=== PATIENT | male | born 1995 | race Caucasian/White ===

== ENCOUNTER 2024-07-24 20:44 | Emergency (ER) | payer BC, SELFPAY ==
[2024-07-24 20:52] VITALS: BP 116/73; PULSE 115; RESP 24; TEMP 38.9; O2SAT 87; BMI 32.1
--- NOTE | 2024-07-24 20:59 | CRLHL7_ITS ---
For Patients: As a result of the Cures Act, medical imaging exams and procedure reports are released immediately into your electronic medical record. You may view this report before your referring provider. If you have questions, please contact your health care provider. INDICATION: Cough, fever. TECHNIQUE: Chest 2 views. COMPARISON: None. FINDINGS: Cardiovascular and mediastinum: Heart size is normal. Unremarkable mediastinum. Lungs and pleural spaces: Patchy opacities seen predominantly on the left. No sign of pleural effusion. No pneumothorax. Bones and soft tissues: No significant findings. IMPRESSION: Patchy pulmonary opacities seen predominantly on the left could represent pneumonia. Dictated by Galo Escobedo MD @ 07/24/2024 9:18:38 PM (Electronically Signed)
[2024-07-24] MEDS: KETOROLAC 30 MG/ML inj IVP (21:10)
[2024-07-24 21:11] LABS: Basophils Absolute Auto 0.04 K/uL (0.00-0.30); Basophils Percent Auto 0.6 % (0.0-3.0); Eosinophils Absolute Auto 0.05 K/uL (0.00-0.50); Eosinophils Percent Auto 0.8 % (0.0-7.0); Hematocrit 40.9 % (37.0-53.0); Hemoglobin* 14.3 gm/dL (13.5-17.5); Immature Granulocytes Abs Auto 0.06 K/uL (0.00-0.30); Immature Granulocytes Pct Auto 0.9 %; Lymphocytes Percent Auto 12.9 % (20-44); Mean Corpuscular HGB Conc 35 gm/dL (32-36); Mean Corpuscular Hemoglobin 31 pg (26-34); Mean Corpuscular Volume 88 fL (80-100); Monocytes Percent Auto 7.4 % (0.0-11.0); Neutrophils Percent Auto 77.4 % (42.0-72.0); Platelet Count* 201 K/uL (140-440); RDW Coefficient of Variation % 11.7 % (11.5-15.5); Red Blood Count 4.66 m/uL (4.30-5.90); Slide Review Reflex No; White Blood Count* 6.58 K/uL (4.50-11.00)
[2024-07-24] MEDS: DEXAMETHASONE 10 MG/ML PF IVP (21:15)
--- NOTE | 2024-07-24 21:17 | ED_ITS ---
HPI - General Adult General Chief complaint: Fever Stated complaint: Pneumonia/ 104.1?F fever Time Seen by Provider: 07/24/24 20:48 History of Present Illness HPI narrative: This 28-year-old male comes in because of persistent fevers and cough. He was seen 4 days ago in an urgent care elsewhere and chest x-ray had suspicion of a left perihilar patchy infiltrate. Nasal swab was negative then for viruses tested. The patient has been taking Augmentin since then but comes in here tripp use of persistent fevers, tachycardia, and shortness of breath. He arrives here with a pulse at 115 and temperature to 102.1? F. His O2 sats went as low as 87% but at rest he is hanging around 90-92% on room air. Related Data Previous Rx's ?Medication ?Instructions ?Recorded methylprednisolone 4 mg tablets in See Rx Instructions PO .COMPLEX 07/24/24 a dose pack (Medrol ([employer]ner)) #21 ea Allergies Allergy/AdvReac Type Severity Reaction Status Date / Time Tetanus Vaccines and Toxoid AdvReac Chills Verified 07/24/24 20:53 Review of Systems Status of ROS: Reports: 10 or more systems reviewed and unremarkable except as noted in History and below Narrative: Constitutional: No weight gain or loss. Fevers. Eyes: No discharge. No vision changes. HENT: No congestion, no sore throat, no ear pain. Cardiovascular: No chest pain, no palpitations. Respiratory: Cough with shortness of breath. Gastrointestinal: No abdominal pain, no vomiting, no diarrhea. Genitourinary: No dysuria, no hematuria. Musculoskeletal: Normal range of motion. Skin: No rashes, no pruritis. Neurological: No dizziness, weakness, sensory change, speech change. Endo/Heme/Allergies: No bruising or bleeding. No polydipsia. Pysch: no suicidality, no anxiety, no insomnia. All other systems reviewed and are negative. Exam Narrative: Exam Narrative: Constitutional: Well-developed, well-nourished. HEENT: Normocephalic, atraumatic. Neck: Normal range of motion. Nontender. Supple. Heart: Regular. No murmurs. Normal rate. Intact distal pulses. Lungs: Clear to auscultation. No chest discomfort. No wheezes, rhonchi, or rales. Abdomen: Normal bowel sounds. Nontender. No rebound tenderness. Genitalia: Deferred. Back: No midline tenderness. Normal range of motion. Extremities: Normal range of motion. No injury. Skin: Intact. No rash. Warm. No erythema or pallor. Neurologic: No altered sensation. No weakness. Alert and oriented. Psychiatric: No suicidality. No anxiety or depression. No insomnia. Nursing notes and vitals signs are reviewed. Const: Vital Signs, click to edit/add: Vital Signs - 24 hr 07/24/24 20:52 Temperature 102.1 F H Pulse Rate [Right Pulse Oximeter] 115 H Respiratory Rate 24 Blood Pressure [Ri ght Upper Arm] 116/73 Pulse Oximetry 87 L Oxygen Delivery Me thod Room Air Course Vital Signs Vital signs: Initial Vital Signs Temperature 102.1 F H 07/24/24 20:52 Temperature Source Temporal Artery Scan 07/24/24 20:52 Pulse Rate 115 H 07/24/24 20:52 Respiratory Rate 24 07/24/24 20:52 Blood Pressure 116/73 07/24/24 20:52 Blood Pressure Mean 87 07/24/24 20:52 Blood Pressure Position Sitting 07/24/24 20:52 Pulse Oximetry 87 L 07/24/24 20:52 Oxygen Delivery Method Room Air 07/24/24 20:52 Vital Signs Temperature 102.1 F H 07/24/24 20:52 Pulse Rate 115 H 07/24/24 20:52 Respiratory Rate 24 07/24/24 20:52 Blood Pressure 116/73 07/24/24 20:52 Pulse Oximetry 87 L 07/24/24 20:52 Oxygen Delivery Method Room Air 07/24/24 20:52 Temperature 102.1 F H 07/24/24 20:52 Pulse Rate 115 H 07/24/24 20:52 Respiratory Rate 24 07/24/24 20:52 Blood Pressure 116/73 07/24/24 20:52 Pulse Oximetry 87 L 07/24/24 20:52 Oxygen Delivery Method Room Air 07/24/24 20:52 Medications Administered Medications: Generic Name Dose Route Start Last Admin Trade Name Freq PRN Reason Stop Dose Admin Dexamethasone 10 mg 07/24/24 21:12 07/24/24 21:15 Dexamethasone 10 Mg/Ml Pf IVP 07/24/24 21:13 10 mg ONCE ONE Administration Ketorolac Tromethamine 30 mg 07/24/24 20:58 07/24/24 21:10 Ketorolac 30 Mg/Ml Inj IVP 07/24/24 20:59 30 mg ONCE ONE Administration Discontinued Medications Generic Name Dose Route Start Last Admin Trade Name Ayo PRN Reason Stop Dose Admin Dexamethasone 10 mg 07/24/24 20:58 07/24/24 21:32 Dexamethasone 4 Mg/Ml Vial IV 07/24/24 20:59 Not Given ONCE ONE Medical Decision Making MDM Narrative Medical decision making narrative: This 28-year-old male comes in with persistent productive cough and fevers despite taking Augmentin for the past 4 days. An IV was established and labs are acquired. A repeat chest x-ray shows similar finding of left patchy infiltrate in the hilar region. Lab results show a normal white count. The patient did receive IV doses of dexamethasone and Toradol. He states that he is feeling better. He is continuing to show oximetry at 92-93% on room air. This patient feels okay to return home. I did give a dose of Rocephin intravenously as it seems that he is truly fighting a bacterial infection but perhaps it is resistant to Augmentin. A prescription also as provided for doxycycline and Medrol Dosepak. Lab Data Labs: Lab Results 07/24/24 Range/Units 21:07 WBC 6.58 (4.50-11.00) K/uL RBC 4.66 (4.30-5.90) m/uL Hgb 14.3 (13.5-17.5) gm/dL Hct 40.9 (37.0-53.0) % MCV 88 (80-100) fL MCH 31 (26-34) pg MCHC 35 (32-36) gm/dL RDW Coeff of Luis Armando 11.7 (11.5-15.5) % Plt Count 201 (140-440) K/uL Neut % (Auto) 77.4 H (42.0-72.0) % Lymph % (Auto) 12.9 L (20-44) % [place] % (Auto) 7.4 (0.0-11.0) % Eos % (Auto) 0.8 (0.0-7.0) % Baso % (Auto) 0.6 (0.0-3.0) % Neut # (Auto) 5.10 (1.7-7.0) K/uL Lymph # (Auto) 0.80 L (0.90-2.90) K/uL [place] # (Auto) 0.50 (0.00-0.90) K/UL Eos # (Auto) 0.05 (0.00-0.50) K/uL Baso # (Auto) 0.04 (0.00-0.30) K/uL Abs Immat Gran (auto) 0.06 (0.00-0.30) K/uL Imm/Tot Granulo (auto) 0.9 % Lactate 1.0 (0.5-1.9) mmol/L Imaging Data Chest x-ray: Radiologist's impression: Patchy pulmonary opacities seen predominantly on the left could represent pneumonia. Discharge Plan Discharge Clinical Impression: Pneumonia Patient Disposition: Home, Self-Care Condition: Stable Additional Instructions: Take medication as prescribed. Follow up with MD or return if symptoms are persistent or worsening. Prescriptions: New methylprednisolone [Medrol ([employer])] 4 mg tablets,dose pack See Rx Instructions .ROUTE .COMPLEX Qty: 21 0RF Rx Instructions: orally per package directions Follow Up/Referrals: Ra Bradley MD [Primary Care Provider] - Stand Alone Forms: [facility] Info Instructions
--- OUTSIDE RECORDS SUMMARY | 2024-07-24 21:21 | XMS_ITS | Clinical Summary ---
Author Organization [facility] Address [address] [place] [address] Care Team Providers Care Tile Installer Name Role Phone Needs Pcp, Assignment Primary Care Provider [phone] Source Comments You are receiving this document as you are listed as the primary care provider,follow-up provider, or the patient has been referred to you for consultation.This is in compliance with the Medicare andMedicaid EHR Incentive Program,which states Providers who transition their patient to another setting of careor provider of care or refers their patient to another provider of care shouldprovide summary care record for each transition of care or referral. [employer] Allergies No known active allergies Immunizations Immunization Administration Dates Next Due DTaP/Hib 03/24/1995, 5,04/08/1994,1993 HepB Adult (Engerix-B, 20+ y rs, 3 dose series) 10/15/1994,04/08/1994,01/31/1994 MMR 03/24/1995 OPV, Trivalent (Orimune or tOPV) 06/05/1994,03/18,01/31/1994 Social History Tobacco Use Types Packs/Day Years Used Date Smoking Tobacco: Never Assessed Sex and Gender Information Value Date Recorded Sex Assigned at Not on file Legal Sex Male 4:51 AM CDT Gender Identity Not on file Sexual Orientation Not on file Last Filed Vital Signs Vital Sign Reading Time Taken Comments Blood Pressure 150/79 03/19/2015 12:36 PM LPN RN Pulse 77 03/19/2015 12:36 PM LPN RN Temperature 37.1 C (98.8 F) 03/19/2015 12:36 PM LPN RN Respiratory Rate 18 03/19/2015 12:36 PM LPN RN Oxygen Saturation - - Inhaled Oxygen Concentration - - Weight - - Height - - Body Mass Index - - Plan of Treatment Health Maintenance Due Date Last Done Comments Hep C Screening (Preventive Services) 1993 IPV (Polio) Vaccine (4 of 4 - 4-dose series) 1997 06/05/1994, 04/08/1994, 01/31/1994 HIV Screening (Preventive Services) 2009 Adult Preventive Visit 12/07/2011 DTaP/Tdap/Td Vaccine (7 - Tdap) 07/15/2016 07/15/2006, 12/04/1998, 03/24/1995, Additional history exists COVID-19 Vaccine (2023- season) 2023 Influenza Vaccine (Season Ended) 2024 Zoster/Shingles Vaccine (1 of 2) 12/07/2043 HepB Vaccine Completed 10/15/1994, 03/18, 01/31/1994 Hib Vaccine Completed 03/24/1995, 10/1995, 06/05/1994, Additional history exists HPV Vaccine Aged Out No longer eligi ble based on patient's age to complete this topic HepA Vaccine Aged Out No longer eligi ble based on patient's age to complete this topic MCV4 Vaccine Aged Out No longer eligi ble based on patient's age to complete this topic Meningococcal B Vaccine Aged Out No l onger eligible based on patient's age to complete this topic Pneumococcal Vaccine Aged Out No long er eligible based on patient's age to complete this topic Care Teams Tile Installer Relationship Specialty Start Date End Date Needs Pcp, [place] [address] PCP - General 03/12/23
--- OUTSIDE RECORDS SUMMARY | 2024-07-24 21:21 | XMS_ITS ---
Author Organization [facility] Address [address] [place] [address] [address] [place] [address] Care Team Providers Care Press Tender Short Goods Name Role Phone Kirk JAQUEZ, Ra Primary Care Provider Shakir Byrne Unavailable [phone] Vipin Hoffman PA-C Unavailable Unavailab le REASON FOR VISIT RFA Results Encounters Encounter Location Date Provider Diagnosis [facility] [address] [place] [address] [address] [place] [address] 05/07/2024 Shakir Best Plan Of Treatment No Information Progress Notes * Klever BAEZDOB:[birth year] (28 yo M)Acc No.[id number]:05/07/2024 Patient: Wendy PARAGPAULAKlever :1995 A ge:28 Y S ex:Male Phone: Address:[address] [place] [address] * true * Date: Generated for Printi ng/Farikyg/eTransmitting on: 0 07/24/2024 09:21 PM CDT
--- OUTSIDE RECORDS SUMMARY | 2024-07-24 21:22 | XMS_ITS | Encounter Summary ---
Author Organization [facility] Address [address] [facility] 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
--- OUTSIDE RECORDS SUMMARY | 2024-07-24 21:22 | XMS_ITS ---
Author Organization [facility] Address [address] [place] [address] [address] [place] [address] Care Team Providers Care Coldfusion Name Role Phone Kirk JAQUEZ, Ra Primary Care Provider Shakir Byrne Unavailable [phone] Vipin Hoffman PA-C Unavailable Unavailab le REASON FOR VISIT *Sedation* repeat Right L3-S1 RFAs Encounters Encounter Location Date Provider Diagnosis [address] [facility] [address] [facility] [address] [place] [address] 05/20/2024 Shakir Best Spondylosis without myelopathy or radiculopathy, lumbosacral region M47.817 Assessments Encounter Date Diagnosis (ICD Code) Assessment Notes Treatment Notes Treatment Clinical Notes Section Notes 05/20/2024 Spondylosis without myelopathy or radiculopathy, lumbosacral region (ICD-10 - M47.817) Plan Of Treatment No Information Progress Notes * Klever BAEZDOB:[birth year] (28 yo M)Acc No.[id number]:05/20/2024 Patient: Wendy APPIAH Klever Marquez Provider: Alma Best M.D. :1995 A ge:28 Y S ex:Male Date:05/20/2024 Phone: Address:[address] [phone] Pcp:Ra Bradley MD * Billing Information: * Visit Code: * Procedure Codes: 69649 Radiofrequency L or S single level. Modifiers: RT J2704 Propofol 10 mg/ml. Units: 35.00. A4616 IV Tubing. 69249 Radiofrequency L or S addl levels. Units: 2.00. Modifiers: RT A4930 Gloves Sterile Per Pair. A4556 EKG Pads-Electrodes. A4649 IV Starter Kit. A4209 5 cc - 19 cc gauge syringe. Units: 2.00. A4215 [place] only Sterile any size each. Units: 6.00. A4615 O2 Mask. S1015 IV Extension Set. A4550 Radiofrequency Kit. J0665 Inj, bupivacaine, nos, 0.5mg. J1100 Dexamethasone/Decadron 1ml. Modifiers: JZ * INE HOOP MAKER HELPER Sign off status: Completed true * Provider: Alma Best M.D. Date: 0 05/20/2024 Generated for Renetta schafer/Artur/Kaliitting on: 0 07/24/2024 09:22 PM CDT
--- OUTSIDE RECORDS SUMMARY | 2024-07-24 21:22 | XMS_ITS ---
Author Organization [facility] Address [address] [place] [address] Care Team Providers Care Systematic Theology Professor Name Role Phone aR Bradley MD Primary Care Provider Shakir Byrne Unavailable [phone] Vipin Hoffman PA-C Unavailable Unavailab le REASON FOR VISIT pre/post Encounters Encounter Location Date Provider Diagnosis [facility] [address] [place] [address] 05/19/2024 Shakir Best Plan Of Treatment No Information Progress Notes * Klever BAEZDOB:[birth year] (28 yo M)Acc No.[id number]:05/19/2024 Patient: Wendy APPIAHKlever :1995 A ge:28 Y S ex:Male Phone: Address:[address] [place] [address] * true * Date: Generated for Printi ng/Faxing/eTransmitting on: 0 07/24/2024 09:22 PM CDT
--- OUTSIDE RECORDS SUMMARY | 2024-07-24 21:22 | XMS_ITS | Patient Health Record ---
Author Organization [facility] Address [address] [place] [address] [address] [place] [address] Care Team Providers Care Certified Travel Counselor Name Role Phone Kirk JAQUEZ, Ra Primary Care Provider Unav ailable Shakir Best Unavailable [phone] Vipin Hoffman PA-C Unavailable Unavailab Carrington Crouch Unavailable [phone] Allergies Allergen (clinical drug ingredient) Drug/Non Drug Allergy documented on EMR Reaction Allergy Type Onset Date Status tetnus (uncoded) fever, rash Allergy A ctive Results Component Value Reference Range Notes MRI : Lumbar Reviewed date:08/25/2023 04:33:18 PM Interpretation: Performing Lab: Notes/Report: Original Report EXAM: MR LUMBAR SPINE WITHOUT CONTRAST 1.5T CLINICAL INFORMATION: Bilateral low back and leg pain with tingling. No injury. TECHNICAL INFORMATION: T1, T2 and STIR sagittal sections through the lumbar spine with T1 coronal sections, T1 and T2 FSE stacked axial sections and T2 FSE angled axial sections through L5-S1. COMPARISON IMAGES: No comparisons. INTERPRETATION: Segmentation and Alignment: Lordotic alignment of five lumbar vertebrae with a mild lumbar curve to the right. Sacrum and Sacroiliac joints: Normal sacrum and sacroiliac joints. L5-S1: Moderate disc degeneration with mild narrowing of the neural foramina. Facet joints normal. L4-5: Mild disc degeneration with mild bilateral facet arthropathy and no stenosis or impingement. L3-4 through T11-12: Intervertebral discs unremarkable with mild endplate irregularities at multiple levels, normal dorsal disc margins, normal facet joints and no stenosis or impingement. Conus: Normal signal intensity within the conus medullaris. No intradural mass or arachnoidal adhesions. Osseous structures: Normal signal intensity within the vertebral marrow spaces. No fracture or avulsion. No osteolytic or destructive bone lesion. Paraspinous soft tissues: No paraspinous soft tissue mass or fluid collection. CONCLUSION: 1. Mild disc and bilateral facet degeneration at L4-5. 2. No disc herniation, no significant stenosis and no neural impingement. 3. No neoplasm, fracture or infection. Read by: Guanaco Perez M.D. Reviewed and Electronically Signed by: Guanaco Perez M.D. - Original Report EXAM: MR LUMBAR SPIN E WITHOUT CONTRAST 1.5T CLINICAL INFORMATION : Bilateral low back and leg pain with tingling. No injury. TECHNICAL INFORMATIO N: T1, T2 and STIR sagittal sections through the lumbar spine with T1 underwood l sections, T1 and T2 FSE stacked axial sections and T2 FSE angled axial section s through L5-S1. COMPARISON IMAGES: N o comparisons. INTERPRETATION: Segm entation and Alignment: Lordotic alignment of five lumbar vertebrae with a mil d lumbar curve to the right. Sacrum and Sacroilia c joints: Normal sacrum and sacroiliac joints. L5-S1: Moderate disc degeneration with mild narrowing of the neural foramina. Facet joints normal. L4-5: Mild disc dege neration with mild bilateral facet arthropathy and no stenosis or impingement. L3-4 through T11-12: Intervertebral discs unremarkable with mild endplate irregularities at mu ltiple levels, normal dorsal disc margins, normal facet joints and no stenos is or impingement. Conus: Normal signal intensity within the conus medullaris. No intradural mass or arachnoidal adhesions. Osseous structures: Normal signal intensity within the vertebral marrow spaces. No fracture or avuls ion. No osteolytic or destructive bone lesion. Paraspinous soft tis sues: No paraspinous soft tissue mass or fluid collection. CONCLUSION: 1. Mild disc and dora ateral facet degeneration at L4-5. 2. No disc herniatio n, no significant stenosis and no neural impingement. 3. No neoplasm, frac ture or infection. Read by: Guanaco Perez M.D. Reviewed and Electro nically Signed by: Guanaco Perez M.D. X ray : Lumbar Reviewed date:08/25/2023 04:33:29 PM Interpretation: Performing Lab: Notes/Report: Original Report EXAM: LUMBAR SPINE X-RAYS, 2 VIEWS CLINICAL: Bilateral low back pain with tingling. No injury. TECHNICAL: Lateral recumbent views with flexion-extension. COMPARISONS: MRI dated 08/12/2023. INTERPRETATION: Lordotic alignment of 5 lumbar type vertebrae with a mild lumbar curve to the right. Moderate L5-S1 and mild L4-5 disc space narrowing. No facet arthropathy and no spondylolisthesis. No abnormal intersegmental motion on flexion-extension. No fracture or avulsion. No osteolytic or destructive bone lesions. CONCLUSION: 1. L5-S1 and L4-5 disc degeneration. 2. No segmental hypermobility on flexion-extension. Read by: Guanaco Perez M.D. Reviewed and Electronically Signed by: Guanaco Perez M.D. - Original Report EXAM: LUMBAR SPINE X -RAYS, 2 VIEWS CLINICAL: Bilateral low back pain with tingling. No injury. TECHNICAL: Lateral r ecumbent views with flexion-extension. COMPARISONS: MRI kamron ed 08/12/2023. INTERPRETATION: Lord otic alignment of 5 lumbar type vertebrae with a mild lumbar curve to the right. Moderate L5-S1 and mild L4-5 disc space narrowing. No facet arthropathy an d no spondylolisthesis. No abnormal intersegmental motion on flexion-extension. No fracture or avuls ion. No osteolytic or destructive bone lesions. CONCLUSION: 1. L5-S1 and L4-5 di sc degeneration. 2. No segmental hype rmobility on flexion-extension. Read by: Guanaco Perez M.D. Reviewed and Electro nically Signed by: Guanaco Perez M.D. Reason For Referral Reason Please evaluate and treat low back and leg pain. Patient needs a short course for injection therapies. Please call patient to schedule at [phone] Diagnosis 1 Low back pain, unspe cified (M54.50) Referral Organization [facility] Referring Provider First Name Carrington Referring Provider Last Name Michael Referring Provider Speciality Physician Aircraft Refueler Referred Provider [facility] Referred Provider Specialty Physical The rapist General Notes Kristine Kraus 024 09:25:50 AM >Please call the patient to schedule and fax back all notes to [phone]. If you need additional records for this referral, please call [phone]. Thanks! 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) Referral Organization [facility] Referring Provider First Name Shakir Referring Provider Last Name Nasir Referring Provider Speciality Pain Medic ine Referred Organization [facility] Referred Provider Shakir Best Referred Address [address] [place] [address] [address] [place], [place],[address], Referred Provider Specialty Pain Medicin e Referral Priority Routine Reason Repeat Left L3-S1 RF A Diagnosis 1 Spondylosis without myelopathy or radiculopathy, lumbosacral 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) Referral Organization [facility] Referring Provider First Name Shakir Referring Provider Last Name Nasir Referring Provider Speciality Pain Medic ine Referred Organization [facility] Referred Provider Shakir Best Referred Address [address] [place] [address] [address],[place], [place],[address], Referred Provider Specialty Pain Medicin e Referral Priority Routine Medications Medication SIG (Take, Route, Frequency, Duration) Notes Start Date End Date Status predniSONE 10 MG 1 to 3 tablet Orally 3 tabs daily x 5 days, then 2 tabs daily x5days then 1 tab daily x 5 days for 15 days 07/30/2023 Active Meloxicam 15 MG 1 tablet Orally Once a day for 30 days Take once daily with food. Do not take OTC NSAIDS when taking Active oxyCODONE-Acetaminophe n 5-325 MG 1 tablet as needed Orally every 6 hrs for 3 days For post procedural pain 05/26/2023 Active Methocarbamol 500 MG 1 tablet as needed Orally three times a day for 30 days Active Medrol 4 MG as directed on Medrol package Orally 1 pack for 6 days 03/24/2023 Active Methocarbamol 500 MG 1 tablet Orally three times a day as needed for 30 day(s) 10/11/2021 Active Social History Tobacco Use: Social History Observation Description Date Details (start date - stop date) Never Smoker NA - NA Alcohol Screen Question Answer Notes Did you have a drink contain ing alcohol in the past year? Yes How often did you have a dri nk containing alcohol in the past year? 2 to 4 times a month (2 points) Points 2 Interpretation Negative Tobacco Control (Standard) Question Answer Notes Tobacco use: Nonsmoker AUDIT-C (Standard) Question Answer Notes Did you have a drink contain ing alcohol in the past year? Yes How often did you have six o r more drinks on one occasion in the past year? Never (0 point) How many drinks did you have on a typical day when you were drinking in the past year? 1 or 2 drinks (0 point) How often did you have a dri nk containing alcohol in the past year? 2 to 4 times a month (2 points) Points 2 Interpretation Negative Problems Problem Type SNOMED Code ICD Code Onset Dates Problem Status W/U Status Risk Notes Problem Fear of medical treatment (601025358) Fear of injections and transfusions (F40.231) Active confirmed Problem Chronic pain (40517439) Other chronic pain (G89.29) Active confirmed Problem Lumbosacral spondylosis without myelopathy (07547902) Spondylosis without myelopathy or radiculopathy, lumbar region (M47.816) Active confirmed Problem Lumbosacral spondylosis without myelopathy (disorder) (68363829) Spondylosis without myelopathy or radiculopathy, lumbosacral 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) Active confirmed Problem Low back pain (780531083) Low back pain, unspecified (M54.50) Active confirmed Vital Signs Blood pressure diastolic 86 mm Hg 03/25/2024 Height 74 in 03/25/2024 Blood pressure systolic 132 mm Hg 03/25/2024 Weight 263.6 lbs 03/25/2024 BMI 33.84 kg/m2 03/25/2024 Encounters Encounter Location Date Provider Diagnosis [facility] [address] [place] [address] [address] [place] [id number] 07/31/2023 Shakir Best [facility] [address] [place] [address] [address] [place] [phone] 08/06/2023 Shakir Best [facility] [address] [place] [address] [address] [place] [phone] 08/12/2023 Shakir Best [place] [address] [facility] [address] [facility] [address] [place] [address] 03/25/2024 Shakir Best [facility] [address] [place] [address] [address] [place] [phone] 05/05/2024 Shakir Best [facility] [address] [place] [address] [address] [place] [phone] 05/07/2024 Shakir Best [facility] [address] [place] [address] [address] [place] [address] 05/19/2024 Shakir Best [place] [address] [facility] [address] [address] 07/30/2023 Carrington Rodriguez Other chronic pain G89.29 and Low back pain, unspecified M54.50 [place] [address] [facility] [address] [facility] [address] [place] [address] 09/08/2023 Carrington Rodriguez Other chronic pain G89.29 and Low back pain, unspecified M54.50 [place] [address] [facility] [address] [facility] [address] [place] [address] 03/25/2024 Carrington Rodriguez Other chronic pain G89.29 and Spondylosis without myelopathy or radiculopathy, lumbosacral region M47.817 [address] [facility] [address] [place] [address] 05/06/2024 Shakir Best Spondylosis without myelopathy or radiculopathy, lumbosacral region M47.817 [address] [facility] [address] [facility] [address] [place] [address] 05/20/2024 Shakir Best Spondylosis without myelopathy or radiculopathy, lumbosacral region M47.817 Assessments Encounter Date Diagnosis (ICD Code) Assessment Notes Treatment Notes Treatment Clinical Notes Section Notes 07/30/2023 Other chronic pain (ICD-10 - G89.29) Klever returns to clinic today for a follow up evaluation regarding his chronic pain and newer right lower extremity pain. I have reviewed the [facility] database and did not find any inconsistencies. We discussed his current symptoms and medications. At this time I believe updated imaging is necessary for further evaluation and treatment. I will order a lumbar MRI and F/E XR to [facility]. I will also refer him for PT in preparation of potential injection therapy. For current pain management, I will start him on a Prednisone taper. This treatment plan was reviewed with Klever, and he was agreeable. I will continue to monitor his progress and he will follow up in one month or sooner if needed. Plan:1. Order lumbar MRI2. Order lumbar F/E XR3. Referral to [facility]. Start 15 day Prednisone taper5. Follow up in 1 month Discharge instructions reviewed verbally. Discussed the risks/benefits of prescribed medication. The patient was instructed to return to the office as scheduled and call with any questions, problems or concerns. 07/30/2023 Low back pain, unspecified (ICD-10 - M54.50) 03/25/2024 Other chronic pain (ICD-10 - G89.29) Klever returns to clinic today for a follow-up evaluation regarding his chronic low back pain. I have reviewed the [facility] database and did not find any inconsistencies. We discussed his current symptoms and medications. I will continue with a treatment plan consisting of conservative treatment at this time. I have reviewed his lumbar MRI and discussed the findings with him in clinic today. He presents after completion of repeat left and right L3-S1 RFAs on 05/08/2023 and 05/26/2023 from which he received 100% relief for 7 months for both sides of his axial low back pain. And the relief gradually retuned to baseline. He inquires in clinic for a repeat of the aforementioned injections. He notes improvement to his walking, standing, sleeping, working, and completing ADLs. I will consider ordering a bilateral L5-S1 TFE for further management of these symptoms. Pending ongoing lower extremity relief, I will consider ordering a bilateral LE EMG for further evaluation of these symptoms. I have advised him to continue his physical therapy as he notes moderate relief of his symptoms. I have refilled his Meloxicam 15 MG as he continues to note moderate relief without side effects. Klever plans to continue his current regimen of Methocarbamol 500MG as he continues to note moderate relief without side effects. Pending further relief from injections and physical therapy, I will consider a neuropathic medication, such as Pregabalin or Lyrica. This treatment plan was reviewed with Klever, and he was agreeable. I will continue to monitor his progress and he will follow up as needed. Plan:1. Reviewed lumbar MRI dated 08/12/23 2. Per patient request, order repeat left and right L3-S1 RFAs3. Consider bilateral L5-S1 TFE4. Consider bilateral LE EMG5. Continue physical therapy 6. Refill Meloxicam 15MG 7. Continue methocarbamol 500MG8. Consider Pregabalin or Lyrica9. Follow up as needed Discharge instructions reviewed verbally. Discussed the risks/benefits of prescribed medication. The patient was instructed to return to the office as scheduled and call with any questions, problems or concerns. Lumbar MRI dated 08/12/23CONCLUSI ON:1. Mild disc and bilateral facet degeneration at L4-5.2. No disc herniation, no significant stenosis and no neural impingement.3. No neoplasm, fracture or infection. 03/25/2024 Spondylosis without myelopathy or radiculopathy, lumbosacral region (ICD-10 - M47.817) 05/06/2024 Spondylosis without myelopathy or radiculopathy, lumbosacral region (ICD-10 - M47.817) 05/20/2024 Spondylosis without myelopathy or radiculopathy, lumbosacral region (ICD-10 - M47.817) 09/08/2023 Other chronic pain (ICD-10 - G89.29) Klever returns to clinic today for a follow up evaluation regarding his chronic low back pain. I have reviewed the [facility] database and did not find any inconsistencies. We discussed his current symptoms and medications. I will continue with a treatment plan consisting of conservative treatment at this time. I have reviewed his lumbar MRI and lumbar flexion/extension XR dated 08/12/23 and discussed the findings with him in clinic today. Based on his imaging findings and ongoing symptoms, I will consider ordering a bilateral L5-S1 TFE for further management of these symptoms. Pending ongoing lower extremity relief, I will consider ordering a bilateral LE EMG for further evaluation of these symptoms. I have advised him to continue his physical therapy as he notes moderate relief of his symptoms. I have refilled his Meloxicam and methocarbamol as he continues to note moderate relief without side effects. Pending further relief from injections and physical therapy, I will consider a neuropathic medication, such as Pregabalin or Lyrica. This treatment plan was reviewed with Klever, and he was agreeable. I will continue to monitor his progress and he will follow up as needed. Plan:1. Reviewed lumbar MRI and lumbar flexion/extension XR dated . Consider bilateral L5-S1 TFE3. Consider bilateral LE EMG4. Continue physical therapy 5. Refill Meloxicam 500MG and methocarbamol6. Consider Pregabalin or Lyrica7. Follow up as needed Discharge instructions reviewed verbally. Discussed the risks/benefits of prescribed medication. The patient was instructed to return to the office as scheduled and call with any questions, problems or concerns. Lumbar MRI dated 08/12/23CONCLUSI ON:1. Mild disc and bilateral facet degeneration at L4-5.2. No disc herniation, no significant stenosis and no neural impingement.3. No neoplasm, fracture or infection. Lumbar flexion/extensio n XR dated 08/12/23CONCLUSI ON:1. L5-S1 and L4-5 disc degeneration.2. No segmental hypermobility on flexion-extensio n. 09/08/2023 Low back pain, unspecified (ICD-10 - M54.50) 07/30/2023 Other I, Willie Ashby , am serving as a scribe to document services personally performed by Carrington Rodriguez PA-C, based upon my observations and the provider's statements to me. All documentation has been reviewed by the aforementioned PATom. Carrington Flores PA-C, attest that the above named individual is acting in scribe capacity, has observed my performance of the services and has documented them in accordance with my direction. The documentation recorded by the scribe accurately reflects the service I personally performed and the decisions made during the clinic visit. 09/08/2023 Other Mark Maryector kinney, am serving as a scribe to document services personally performed by Carrington Rodriguez PA-C, based upon my observations and the provider's statements to me. All documentation has been reviewed by the aforementioned PATom. Carrington Flores PA-C, attest that the above named individual is acting in scribe capacity, has observed my performance of the services and has documented them in accordance with my direction. The documentation recorded by the scribe accurately reflects the service I personally performed and the decisions made during the clinic visit. 03/25/2024 Other Javi Flores i, am serving as a scribe to document services personally performed by Carrington Rodriguez PA-C, based upon my observations and the provider's statements to me. All documentation has been reviewed by the aforementioned PAJermaineC. Carrington Flores PA-C, attest that the above named individual is acting in scribe capacity, has observed my performance of the services and has documented them in accordance with my direction. The documentation recorded by the scribe accurately reflects the service I personally performed and the decisions made during the clinic visit. Plan Of Treatment No Information Insurance Providers Payer Name Payer Address Payer Phone Subscriber Number Group Number Insured Name Patient Relationship to Insured Coverage Start Date Coverage End Date [facility] [address] [address] [place] [address] [id number] Сергей sims Child - Insured has Financial Responsibility 7 Medications Administered Medication Instructions Date of Administration Dosage Notes Toradol 01/18/2019 2 units Pt observed fo r 10 minutes without adverse reaction. Medical (General) History Surgical History Surgery Date(Month/Year) Lumbar Radiofrequency 05/2019 Hospitalization History Reason Date(Month/Year) Surgical
--- OUTSIDE RECORDS SUMMARY | 2024-07-24 21:22 | XMS_ITS | Clinical Summary ---
Author Organization [facility] Address [address] [place] [id number] Care Team Providers Care Press Leader Name Role Phone Ra Bradley MD Primary Care Provider Allergies Active Allergy Reactions Criticality Noted Date Comments Tetanus-Diphtheria Toxoids-Td Other - Describe In Comment Field 02/18/2014 Chills, unstable Medications multivitamin (MVI) tablet Take 1 tablet by mouth once daily. 0 4 Active fluticasone propion-salmeter ol (ADVAIR DISKUS) 500-50 mcg/Dose diskus inhalerIndicatio ns:Moderate persistent asthma with acute exacerbation (HC) Inhale 1 Puff by mouth every 12 hours. 1 Inhaler 0 Active ipratropium-albu terol (COMBIVENT RESPIMAT) (20-100 mcg each actuation) mist inhalerIndicatio ns:Moderate persistent asthma with acute exacerbation (HC) Inhale 1 Puff by mouth 4 times daily. 1 Inhaler 0 Active loratadine-pseud oephedrine, 10-240 mg, 24 hr (CLARITIN-D 24 HOUR) 10-240 mg per tabletIndication s:Environmental allergies Take 1 tablet by mouth once daily. 30 tablet 5 0 Active ALPRAZolam (XANAX) 0.5 mg tabletIndication s:Anxiety Take 1 Tablet (0.5 mg) by mouth 3 times daily. 20 Tablet 1 Active predniSONE (DELTASONE) 50 mg tab tabletIndication s:Viral URI One po QAM as needed symptoms. 10 Tablet 3 Active albuterol HFA 90 mcg/actuation inhalerIndicatio ns:Mild intermittent asthma with acute exacerbation (HC) Inhale 2 Puffs by mouth every 4 hours if needed for Shortness Of Breath. 18 g 5 5 Active albuterol HFA (PRO-AIR; VENTOLIN; PROVENTIL) 90 mcg/actuation inhalerIndicatio ns:Mild intermittent asthma with acute exacerbation (HC) INHALE 2 PUFFS BY MOUTH FOUR TIMES DAILY NEEDED FOR SHORTNESS OF BREATH 6.7 g 3 07/22/19 25 Discontin ued(Reord er (E-cancel not sent)) Active Problems Problem Noted Date Diagnosed Date Eczema 06/01/2015 Asthma 02/18/2014 Encounters Date Type Department Care Team Description 07/21/2024 Refill [facility] [id number] [place] [address] Ra Bradley MD Refill Request (albuterol) 07/20/2024 Nurse Triage [address] [address] Ra Bradley MD Breathing Problem from Last 3 Months Immunizations Immunization Administration Dates Next Due DTP-HIB 03/24/1995,06/05/1994,04/08/1994 ,01/31/1994 DTaP 12/04/1998, 6,06/05/1994,04/08/1994,01/31 Hepatitis B (Adult) 10/15/1994,04/08/1994,1993 Hepatitis B, Unspecified 10/15/1994,04/08/1994,1 1993 Hib Conjugate, Unspecified 03/24/1995,06/05/1994 ,04/08/1994,01/31/1994 MMR 12/04/1998,03/24/1995 Oral Polio Vaccine 06/05/1994,04/08/1994, 994 Polio Virus, Unspecified 06/05/1994,04/08/1994,1 1993 Tdap 07/15/2006 Family History Relation Name Status Comments Brother Alive 2 years younger Father Alive Mother Alive Social History Tobacco Use Types Packs/Day Years Used Date Smoking Tobacco: Never Smokeless Tobacco: Former Chew Quit: 03/17/2013 Tobacco Cessation:Counseling Given: Yes Alcohol Use Standard Drinks/Week Comments Yes 0 (1 standard drink = 0.6 oz pur e alcohol) couple times a week. 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 Not on file Not on file Not on cary e Obstetrics History Last Filed Vital Signs Vital Sign Reading Time Taken Comments Blood Pressure 122/84 04/18/2020 10:38 AM GREENHOUSE ASSISTANT Pulse 55 03/20/2019 9:17 AM GREENHOUSE ASSISTANT Temperature 37.2 C (98.9 F) 03/20/2019 9:17 AM GREENHOUSE ASSISTANT Respiratory Rate 22 03/20/2019 9:17 AM GREENHOUSE ASSISTANT Oxygen Saturation 93% 03/20/2019 9:17 AM GREENHOUSE ASSISTANT Inhaled Oxygen Concentration - - Weight 115.2 kg (254 lb) 04/18/2020 10:38 AM GREENHOUSE ASSISTANT Height 185.4 cm (6' 1) 04/18/2020 10:38 AM GREENHOUSE ASSISTANT Body Mass Index 33.51 04/18/2020 10:38 AM GREENHOUSE ASSISTANT Plan of Treatment Health Maintenance Due Date Last Done Comments HIV for age 15-65 2008 Hepatitis C screening for age 18-79 12/07/2011 BMI (ht and wt on same day) for age 18+ 04/18/2021 04/18/2020, 03/20/2019, 05/23/2017, Additional history exists Depression screening for age 12+ 04/19/2021 04/19/2020, 04/18/2020, 05/23/2017, Additional history exists COVID-19 vaccine series (2023-25 season) 2023 Influenza Vaccine (Season Ended) 2024 Pneumococcal series for age 6-49 Aged Out No longer eligible based on patient's age to complete this topic Insurance [id number] [place] [address] [facility] Care Teams Press Leader Relationship Specialty [place] [address] [place], [place] [id number] PCP - General Family Practice 02/19/14
--- OUTSIDE RECORDS SUMMARY | 2024-07-24 21:22 | XMS_ITS | Clinical Summary ---
Author Organization [facility] Address [address] [place] [address] Care Team Providers Care Tower Climber Name Role Phone Clinic, [facility] Primary Care Provider + Allergies Active Allergy Reactions Criticality Noted Date Comments Tetanus Toxoid 03/16/2019 Medications guaiFENesin-cod eine (ROBITUSSIN AC) 100-10 MG/5ML solution Take 5-10 mLs by mouth every 4 hours as needed for cough 236 mL 03/16/2019 Active benzonatate (TESSALON) 200 MG capsule Take 1 capsule (200 mg) by mouth 3 times daily as needed for cough 24 capsule 03/16/2019 Active amoxicillin-cla vulanate (AUGMENTIN) 875-125 MG tablet Take 1 tablet by mouth 2 times daily. 20 tablet 07/20/2024 Active ondansetron (ZOFRAN ODT) 4 MG ODT tab Take 1 tablet (4 mg) by mouth every 8 hours as needed for nausea. 12 tablet 07/20/2024 Active Active Problems Problem Noted Date Diagnosed Date Sprain of lumbar region 06/06/2009 Encounters Date Type Department Care Team Description 07/20/2024 4:19 PM CDT - 07/20/2024 6:18 PM CDT [facility] Emergency Dept [address] [place] [address] Pepe Patino, ANNE Pneumonia of left lung due to infectious organism, unspecified part of lung Discharge Disposition: Home or Self Care 07/20/2024 Travel from Last 3 Months Social History Tobacco Use Types Packs/Day Years Used Date Smoking Tobacco: Never Assessed Sex and Gender Information Value Date Recorded Sex Assigned at Not on file Legal Sex Male 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 EXPEDITER Gender Identity Not on file Sexual Orientation Not on file Last Filed Vital Signs Vital Sign Reading Time Taken Comments Blood Pressure 144/82 07/20/2024 4:01 PM CDT Pulse 109 07/20/2024 4:01 PM CDT Temperature 37.6 C (99.6 F) 07/20/2024 4:01 PM CDT Respiratory Rate 18 07/20/2024 4:01 PM CDT Oxygen Saturation 96% 07/20/2024 4:01 PM CDT Inhaled Oxygen Concentration - - Weight 112.5 kg (248 lb) 07/20/2024 4:01 PM CDT Height 188 cm (6' 2) 07/20/2024 4:01 PM CDT Body Mass Index 31.84 07/20/2024 4:01 PM CDT Plan of Treatment Health Maintenance Due Date Last Done Comments ADVANCE CARE PLANNING 1993 ANNUAL REVIEW OF HM ORDERS 1993 HIV SCREENING 2008 HEPATITIS C SCREENING 12/07/2011 DTAP/TDAP/TD IMMUNIZATION (7 - Td or Tdap) 07/15/2016 07/15/2006, 12/04/1998, 03/24/1995, Additional history exists YEARLY PREVENTIVE VISIT 04/18/2021 04/18/2020 COVID-19 Vaccine ( season) 2023 PHQ-2 (once per calendar year) 2024 INFLUENZA VACCINE (Season Ended) 2024 ZOSTER IMMUNIZATION (1 of 2) 12/07/2043 HEPATITIS B IMMUNIZATION Completed 995, 04/08/1994, 01/31/1994 HPV IMMUNIZATION Aged Out No longer e ligible based on patient's age to complete this topic MENINGITIS IMMUNIZATION Aged Out No l onger eligible based on patient's age to complete this topic Pneumococcal Vaccine: Pediatrics (0 to 5 Years) and At-Risk Patients (6 to 49 Years) Aged Out No longer eligible based on patient's age to complete this topic Procedures Procedure Name Priority Date/Time Associated Diagnosis Comments XR CHEST 2 VIEWS STAT 07/20/2024 4:49 PM CDT GROUP A STREPTOCOCCUS PCR THROAT SWAB STAT 07/20/2024 4:07 PM CDT INFLUENZA A/B, RSV AND SARS-COV2 PCR STAT 07/20/2024 4:07 PM CDT from Last 3 Months Results * Chest XR, PA & LAT (07/20/2024 4:49 PM CDT) Anatomical Region Laterality Modality Chest Digital Radiogra phy 07/20/2024 4:49 PM CDT Impressions 07/20/2024 5:00 PM CDT IMPRESSION: A new small patchy left perihilar opacity is suggestive of an infectious or inflammatory pneumonitis. The lungs are otherwise clear. No pleural effusion or pneumothorax. Normal heart size and pulmonary vascularity. Narrative 07/20/2024 5:00 PM CDT EXAM: XR CHEST 2 VIEWS LOCATION: [facility] DATE: 07/20/2024 INDICATION: cough, fevers x 3 days COMPARISON: 06/16/2019. Procedure Note Serafin Quinonez MD - 07/20/2024 EXAM: XR CHEST 2 VIEWS LOCATION: [facility] DATE: 07/20/2024 INDICATION: cough, fevers x 3 days COMPARISON: 06/16/2019. IMPRESSION: A new small patchy left perihilar opacity is suggestive of aninfectious or inflammatory pneumonitis. The lungs are otherwise clear. Nopleural effusion or pneumothorax. Normal heart size and pulmonaryvascularity. Pepe Patino PA-C [facility] ORDER [facility]ANC[facility] Final Result * Influenza A/B, RSV and SARS-CoV2 PCR (COVID-19) Nasopharyngeal (07/20/2024 4:07 PM CDT) Influenza A PCR Negative Negative 07/20/2024 5:25 PM CDT [facility] Influenza B PCR Negative Negative 07/20/2024 5:25 PM CDT [facility] RSV PCR Negative Negative 07/20/2024 5:25 PM CDT [facility] SARS CoV2 PCR Negative Negative 07/20/2024 5:25 PM CDT [facility] Comment:NEGATIVE: SARS-CoV-2 (COVID-19) RNA not detected, presumed negative. Swab NASOPHARYNGEAL STRUCTURE / Unknown Non-blood Collection / Unknown 07/20/2024 4:07 PM CDT 07/20/2024 4:33 PM CDT Narrative LABORATORY - 07/20/2024 5:25 PM CDT Testing was performed using the Xpert Xpress CoV2/Flu/RSV Assay on the Shout[employer]pert Instrument. This test should be ordered for the detection of SARS- CoV2, influenza, and RSV viruses in individuals with signs and symptoms of respiratory tract infection. This test is for in vitro diagnostic use under the US FDA for laboratories certified under CLIA to perform high or moderate complexity testing. This test has been US FDA cleared. A negative result does not rule out the presence of PCR inhibitors in the specimen or target RNA in concentration below the limit of detection for the assay. If only one viral target is positive but coinfection with multiple targets is suspected, the sample should be re-tested with another FDA cleared, approved, or authorized test, if coninfection would change clinical management. This test was validated by the [facility]. These laboratories are certified under the Clinical Laboratory Improvement Amendments of 1988 (CLIA-88) as qualified to perfom high complexity laboratory testing. Pepe Patino PA-C LAB - MICRO GENERAL ORDERABL ES Final Result LABORATORY [facility] Acute Care Lab [address] [facility] Lab (1st floor, no room number) [place] [address], [facility] * Group A Streptococcus PCR Throat Swab (07/20/2024 4:07 PM CDT) Group A strep by PCR Not Detected Not Detected 07/20/2024 5:13 PM CDT LABORATORY Swab STRUCTURE OF ANTERIOR PORTION OF NECK / Unknown Non-blood Collection / Unknown 07/20/2024 4:07 PM CDT 07/20/2024 4:33 PM CDT Narrative LABORATORY - 07/20/2024 5:13 PM CDT The Xpert Xpress Strep A test, performed on the [employer] Instrument Systems, is a rapid, qualitative in vitro diagnostic test for the detection of Streptococcus pyogenes (Group A -hemolytic Streptococcus, Strep A) in throat swab specimens from patients with signs and symptoms of pharyngitis. The Xpert Xpress Strep A test can be used as an aid in the diagnosis of Group A Streptococcal pharyngitis. The assay is not intended to monitor treatment for Group A Streptococcus infections. The Xpert Xpress Strep A test utilizes an automated real-time polymerase chain reaction (PCR) to detect Streptococcus pyogenes DNA. Pepe Patino PA-C LAB - MICRO GENERAL ORDERABL ES Final Result [facility] Acute Care Lab [address] Lab (1st floor, no room number) [place] [address], [facility] from Last 3 Months Insurance [employer] [id number] [place] [id number] [facility] Member Subscriber Plan / Payer (Ef fective 2016-Present) Name:Klever Baez Relation to Subscriber:Self Name:Klever Baez Payer ID:[id number] (NAIC) Type:Indemnity Address: [place] [id number] [place] [address] Care Teams Tower Climber Relationship Specialty Start Date End Date [facility] [id number] [place] [phone] PCP - General 03/16/19
--- OUTSIDE RECORDS SUMMARY | 2024-07-24 21:22 | XMS_ITS | Encounter Summary ---
Author Organization [place] Address [address] [place] [address] Care Team Providers Care Airline Pilot Flight Instructor Name Role Phone Clinic, [facility] Primary Care Provider + Reason for Visit * Reason Comments Fever Encounter Details Date Type Department Care Team (Late st Contact Info) Description 07/20/2024 4:19 PM CDT - 07/20/2024 6:18 PM CDT Emergency [facility] Emergency Dept [address] [place] [address] Pepe Patino, PA-C [facility] [address] [place] [phone] Pneumonia of left lung due to infectious organism, unspecified part of lung Discharge Disposition: Home or Self Care Social History Tobacco Use Types Packs/Day Years Used Date Smoking Tobacco: Never Assessed Sex and Gender Information Value Date Recorded Sex Assigned at Not on file 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 * Pneumonia ([place]) documented in this encounter Medications at Time of Discharge amoxicillin-clavu lanate (AUGMENTIN) 875-125 MG tablet Take 1 tablet by mouth 2 times daily. 20 tablet 07/20/2024 ondansetron (ZOFRAN ODT) 4 MG ODT tab Take 1 tablet (4 mg) by mouth every 8 hours as needed for nausea. 12 tablet 07/20/2024 benzonatate (TESSALON) 200 MG capsule Take 1 capsule (200 mg) by mouth 3 times daily as needed for cough 24 capsule 03/16/2019 guaiFENesin-codei ne (ROBITUSSIN AC) 100-10 MG/5ML solution Take 5-10 mLs by mouth every 4 hours as needed for cough 236 mL 03/16/2019 documented as of this encounter ED Notes * Pepe Patino PA-C - 07/20/2024 4:36 PM CDT Emergency Department Note History of Present Illness Chief Complaint Fever HPI Klever Bennett is a 28 year old male who presents with approximately 3 days of productive cough and fever. Patient reports on Friday he began developing a mild cough. He reports an at-home temperature of 102.6 F this morning. He has taken 800 mg of ibuprofen today. He also notes some diarrhea.Patient denies vomiting, sick contacts or recent foreign travel. Independent Historian None Review of External Notes Past Medical History Medical History and Problem List Asthma Medications The patient is currently on no regular medications. Physical Exam Patient Vitals for the past 24 hrs: BP Temp Temp src Pulse Resp SpO2 Height Weight 07/20/24 1601 (!) 144/82 99.6 ??F (37.6 ??C) Oral 109 18 96 % 1.88 m (6' 2) 112.5 kg (248 lb) Physical Exam Vitals and nursing note reviewed. Constitutional: Appearance: He is not diaphoretic. HENT: Right Ear: Tympanic membrane, ear canal and external ear normal. Left Ear: Tympanic membrane, ear canal and external ear normal. Nose: Nose normal. Mouth/Throat: Lips: Pix[place]. Mouth: Mucous membranes are moist. Pharynx: Oropharynx is clear. Uvula midline. No pharyngeal swelling, oropharyngeal exudate, posterior oropharyngeal erythema or uvula swelling. Tonsils: No tonsillar exudate. Cardiovascular: Rate and Rhythm: Normal rate and regular rhythm. Heart sounds: Normal heart sounds. No murmur heard. No friction rub. No gallop. Pulmonary: Effort: No respiratory distress. Breath sounds: Normal breath sounds. No stridor. No wheezing, rhonchi or rales. Neurological: Mental Status: He is alert and oriented to person, place, and time. Mental status is at baseline. Psychiatric: Mood and Affect: Mood normal. Behavior: Behavior normal. Thought Content: Thought content normal. Diagnostics Lab Results Labs Ordered and Resulted from Time of ED Arrival to Time of ED Departure INFLUENZA A/B, RSV AND SARS-COV2 PCR - Normal Result Value Influenza A PCR Negative Influenza B PCR Negative RSV PCR Negative SARS CoV2 PCR Negative GROUP A STREPTOCOCCUS PCR THROAT SWAB - Normal Group A strep by PCR Not Detected Imaging Chest XR, PA & LAT Final Result IMPRESSION: A new small patchy left perihilar opacity is suggestive of an infectious or inflammatory pneumonitis. The lungs are otherwise clear. No pleural effusion or pneumothorax. Normal heart sizeand pulmonary vascularity. Independent Interpretation CXR: infiltrate left perihilar lung. No effusion.. ED Course Medications Administered Medications - No data to display Procedures Procedures Discussion of Management None ED Course ED Course as of 07/21/24 0852 FriJuly 20, 2024 1637 I obtained history and examined the patient as noted above. 1726 I rechecked the patient and explained findings. We discussed plan for discharge and patient isin agreement with plan. Additional Documentation None Medical Decision Making / Diagnosis [facility] Diagnoses: None MIPS None MDM This is a very pleasant and well appearing 28 year old male who for evaluation of cough and fevers.There is no evidence of acute otitis media. There is no significant tachypnea, increased work of breathing. CXR is consistent with pneumonia. He will be placed on antibiotics with recommend close follow up with his primary care provider. The patient may take Tylenol or ibuprofen for pain and fever, and I discussed supportive measures such as decongestants. Return if increasing pain, fever, difficulty breathing, vomiting, or any otherconcerns. Disposition The patient was discharged. Diagnosis ICD-10-CM 1. Pneumonia of left lung due to infectious organism, unspecified part of lung J18.9 Discharge Medications Discharge Medication List as of 07/20/2024 5:26 PM START taking these medications Details amoxicillin-clavulanate (AUGMENTIN) 875-125 MG tablet Take 1 tablet by mouth 2 times daily., Disp-20 tablet, R-0, Local Print Scribe Disclosure: I, Elba Cedeño, am serving as a scribe at 4:36 PM on 07/20/2024 to document services personally performed by Pepe aPtino PA-C based on my observations and the provider's statements to me. Pepe Patino PA-C 07/21/24 0852 * Anabel Carreon, CORI - 07/20/2024 4:01 PM CDT Patient reports ongoing cough and fever for about 3 days. Hx asthma. ABCs intact, A&Ox4 Triage Assessment (Adult) Row Name 07/20/24 1601 Triage Assessment Airway WDL WDL Respiratory WDL Respiratory WDL X;cough Skin Circulation/Temperature WDL Skin Circulation/Temperature WDL WDL Cardiac WDL Cardiac WDL WDL Peripheral/Neurovascular WDL Peripheral Neurovascular WDL WDL Cognitive/Neuro/Behavioral WDL Cognitive/Neuro/Behavioral WDL WDL documented in this encounter Plan of Treatment Not on file documented as of this encounter Procedures Procedure Name Priority Date/Time Associated Diagnosis Comments XR CHEST 2 VIEWS STAT 07/20/2024 4:49 PM CDT INFLUENZA A/B, RSV AND SARS-COV2 PCR STAT 07/20/2024 4:07 PM CDT GROUP A STREPTOCOCCUS PCR THROAT SWAB STAT 07/20/2024 4:07 PM CDT documented in this encounter Results * Chest XR, PA & LAT [...] CDT EXAM: XR CHEST 2 VIEWS LOCATION: [facility] DATE: 07/20/2024 INDICATION: cough, fevers x 3 days COMPARISON: 06/16/2019. Procedure Note Serafin Quinonez MD - 07/20/2024 EXAM: XR CHEST 2 VIEWS LOCATION: [facility] DATE: 07/20/2024 INDICATION: cough, fevers x 3 days COMPARISON: 06/16/2019. IMPRESSION: A new small patchy left perihilar opacity is suggestive of aninfectious or inflammatory pneumonitis. The lungs are otherwise clear. Nopleural effusion or pneumothorax. Normal heart size and pulmonaryvascularity. Pepe Patino PA-C [facility] ORDER [facility]ANC[facility] Final Result * Group A Streptococcus PCR Throat Swab (07/20/2024 4:07 PM CDT) Group A strep by PCR Not Detected Not Detected 07/20/2024 5:13 PM CDT [facility] Swab STRUCTURE OF ANTERIOR PORTION OF NECK / Unknown Non-blood Collection / Unknown 07/20/2024 4:07 PM CDT 07/20/2024 4:33 PM CDT Narrative [facility] - 07/20/2024 5:13 PM CDT The Xpert Xpress Strep A test, performed on the [employer], is a rapid, qualitative in [...] MICRO GENERAL ORDERABL ES Final Result LABORATORY [facility] Acute Care Lab [address] [facility] Lab (1st floor, no room number) [place] [address], [facility] * Influenza A/B, RSV and SARS-CoV2 PCR (COVID-19) Nasopharyngeal (07/20/2024 4:07 PM CDT) Pathologist [facility] Influenza A PCR Negative Negative 07/20/2024 5:25 PM CDT LABORATORY Influenza B PCR Negative Negative 07/20/2024 5:25 PM CDT LABORATORY RSV PCR Negative Negative 07/20/2024 5:25 PM CDT LABORATORY SARS CoV2 PCR Negative Negative 07/20/2024 5:25 PM CDT LABORATORY Comment:NEGATIVE: SARS-CoV-2 (COVID-19) RNA not detected, presumed negative. Swab NASOPHARYNGEAL STRUCTURE / Unknown Non-blood Collection / Unknown 07/20/2024 4:07 PM CDT 07/20/2024 4:33 PM CDT [facility]ORATORY - 07/20/2024 5:25 PM CDT Testing was performed using the Xpert Xpress CoV2/Flu/RSV Assay on the [employer] GeneXpert Instrument. This test should be ordered for [...] management. This test was validated by the [facility]. These laboratories are certified under the Clinical Laboratory Improvement Amendments of 1988 (CLIA-88) as qualified to perfom high complexity laboratory testing. Pepe Patino PA-C LAB - MICRO GENERAL ORDERABL ES Final Result [facility] Acute Care Lab [address] [facility] Lab (1st floor, no room number) [place] [address], [facility] documented in this encounter Visit Diagnoses Diagnosis Pneumonia of left lung due to infectious organism, unspecified part of lung documented in this encounter Administered Medications Inactive Administered Medications - up to 3 most recent administrations Medication Order MAR Action Action Date Dose Rate Site acetaminophen (TYLENOL) tablet 1,000 mg 1,000 mg, Oral, EVERY 4 HOURS PRN, fever, Starting on Fri07/20/24 at 1602, Maximum acetaminophen dose from all sources = 75 mg/kg/day not to exceed 4 gram $Given 07/20/2024 4:06 PM CDT 1,000 mg documented in this encounter Active and Recently Administered Medications Times are shown in CDT. PRN Medication Order 07/18/2024 07/19/2024 07/20/2024 acetaminophen (TYLENOL) tablet 1,000 mg 1,000 mg, Oral, EVERY 4 HOURS PRN, fever, Starting on Fri07/20/24 at 1602, Maximum acetaminophen dose from all sources = 75 mg/kg/day not to exceed 4 gram 1606 ($Given - Provi everette: Anabel Carreon RN) documented in this encounter Additional Health Concerns Infection Onset Date Last Indicated Resolved Time Rule Out COVID-19 07/20/2024 07/20/2024 07/20/2024 5:25 PM CDT documented as of this encounter Care Teams Airline Pilot Flight Instructor Relationship Specialty Start Date End Date [facility], [facility] [address] [facility] [phone] PCP - General 03/16/19 documented as of this encounter
[2024-07-24 21:31] LABS: C Reactive Protein* 8.3 mg/dL (0.5-1.0)
[2024-07-24 21:45] LABS: Procalcitonin* 0.11 ng/mL (<0.50)
[2024-07-24] MEDS: cefTRIAXone 1 GM in 0.9 % SODIUM CHLORIDE Mini-bag 100 ML IVPB (21:57)
[2024-07-24 22:02] VITALS: BP 130/83; PULSE 95; RESP 18; TEMP 37.7; O2SAT 93
== END 2024-07-24 22:36 | disposition home or self-care (01) ==
PROVIDERS: Emergency Provider Emergency Medicine Emergency Medical Services; PCP Family Medicine
DX: J18.9 Pneumonia, unspecified organism (principal)
CPT/HCPCS: 36415; 71046; 83605; 84145; 85025; 86140; 87040; 96365; 96375; 99284; J0696; J1100; J1885